=== PATIENT | female | born 1950 | race Caucasian/White ===

== ENCOUNTER → 2016-09-26 | Outpatient (CLI) | payer MEDICARE, OTHER ==
--- NOTE | 2016-09-26 11:47 | Diagnostic Imaging Report ---
EXAMINATION: DEXA scan. INDICATION: Osteopenia. TECHNIQUE: Bone mineral density estimated based on dual energy radiography over the lumbar spine and femoral necks, was performed. FINDINGS: The lumbar spine T-score is -1.8. This is 4.5% decreased density measurement compared to 09/22/2014. T score over the left femoral neck is -1.2 and on the right side is -1.4. This is 1.2% decreased density compared to 09/22/2014. IMPRESSION: Osteopenia. Dictated by: Dictated on workstation # [id number]
--- NOTE | 2016-09-26 19:27 | Diagnostic Imaging Report ---
Bilateral screening mammogram 2D views with tomosynthesis The current study was also evaluated with a Computer Aided Detection (CAD) system. Indication: Screening. No current complaints stated on the questionnaire. COMPARISON: 08/15/15. FINDINGS: The breasts are composed of heterogeneously dense parenchyma which may decrease mammographic sensitivity. Benign-appearing calcifications are seen. Allowing for technique and positional differences, no suspicious change is seen. IMPRESSION: Dense breasts with no definite change. ACR BI-RADS Category 2: Benign findings. Result letter will be mailed to the patient. Note: At least 10% of breast cancer is not imaged by mammography. Dictated by: Dictated on workstation # [id number]
== END ==
LOC: RAD 09:22
PROVIDERS: ATTEND Nurse Practitioner Family
DX: Z12.31 Encounter for screening mammogram for malignant neoplasm of breast (principal); M85.89 Other specified disorders of bone density and structure, multiple sites; E55.9 Vitamin D deficiency, unspecified
CPT/HCPCS: 77067; 77080

== ENCOUNTER → 2016-12-13 | Outpatient (CLI) | payer MEDICARE, OTHER ==
--- NOTE | 2016-12-13 14:12 | Diagnostic Imaging Report ---
INDICATION: Foot pain. COMPARISON: None. FINDINGS: Three views of the right foot demonstrate no acute fracture or dislocation. There are no focal osseous lesions. There is no soft tissue swelling. Joint spaces are well maintained. No radiopaque foreign bodies are seen. IMPRESSION: No acute fractures or dislocations of the right foot. Dictated by: Dictated on workstation # [id number]
== END ==
LOC: RAD 13:32
PROVIDERS: ATTEND Nurse Practitioner Family
DX: M79.671 Pain in right foot (principal)
CPT/HCPCS: 73630

== ENCOUNTER → 2017-03-15 | Outpatient (CLI) | payer MEDICARE, OTHER ==
--- NOTE | 2017-03-15 17:21 | Diagnostic Imaging Report ---
INDICATION: Lower respiratory infection. EXAMINATION: PA and lateral chest. FINDINGS: Heart size and pulmonary vascularity are normal. Lungs are clear. There are no effusions or pneumothoraces. IMPRESSION: Negative chest. Dictated by: Dictated on workstation # [id number]
== END ==
LOC: RAD 16:44
PROVIDERS: ATTEND Nurse Practitioner Family
DX: J20.8 Acute bronchitis due to other specified organisms (principal)
CPT/HCPCS: 71046

== ENCOUNTER → 2017-10-01 | Outpatient (CLI) | payer MEDICARE, OTHER ==
--- NOTE | 2017-10-01 12:16 | Diagnostic Imaging Report ---
INDICATION: Routine screening. Comparison is made with prior exam from 09/26/2016 and 08/15/2015. 2-D and 3-D bilateral screening mammography was performed. The current study was also evaluated with a Computer Aided Detection (CAD) system. FINDINGS: Both breasts are heterogeneously dense, limiting the sensitivity of mammography. The parenchymal pattern is stable. No mass or malignant-appearing microcalcifications are seen. There are benign calcifications bilaterally. The axillae are unremarkable. IMPRESSION: No mammographic features suspicious for malignancy are identified. ACR BI-RADS Category 2: Benign findings. Result letter will be mailed to the patient. Note: At least 10% of breast cancer is not imaged by mammography. Dictated by: Dictated on workstation # [id number]
== END ==
LOC: RAD 10:13
PROVIDERS: ATTEND Nurse Practitioner Family
DX: Z12.31 Encounter for screening mammogram for malignant neoplasm of breast (principal)
CPT/HCPCS: 77067

== ENCOUNTER → 2017-11-10 | Outpatient (CLI) | payer MEDICARE, OTHER ==
--- NOTE | 2017-11-10 17:41 | Diagnostic Imaging Report ---
PROCEDURE: MRI right lower extremity without contrast. TECHNIQUE: Multiplanar, multisequence non contrast-enhanced MRI of the right lower extremity was accomplished. INDICATION: Medial knee pain and swelling since August. No history of previous surgery. FINDINGS: LIGAMENTS AND TENDONS: The anterior cruciate ligament and posterior cruciate ligament appear normal. The medial collateral ligament appears normal. The lateral collateral ligament complex is normal. The quadriceps tendon and the patellar ligament are normal. MENISCI: The lateral meniscus is intact showing normal signal. The medial meniscus shows a significant component of the medial meniscus absent. There is a complex tear involving the remaining portion of posterior horn of the medial meniscus. The anterior horn appears intact. BONES AND CARTILAGE: There is large area of loss of articulating cartilage along the medial femoral condyle and tibial plateau consistent with chronic meniscal disease. There is subcortical edema. No definite cortical bony fracture demonstrated. The lateral femoral condyle and tibial plateau show relatively good preservation of the articulating cartilage. The patellofemoral joint shows good alignment. Trochlea appears normal. No significant loss of cartilage demonstrated. No subcortical edema. No hypertrophic bony changes. BURSA AND SOFT TISSUES: There is a large joint effusion with a large posterior popliteal cyst. This measures approximately 7 cm superior to inferior and 2.5 cm in diameter. There is noted loose body present along the medial gutter likely representing meniscal fragment measuring 10 x 5 mm. IMPRESSION: 1. Finding consistent with chronic meniscal disease in the medial compartment with fragmentation of the medial meniscus. Complex tear in the remaining posterior horn of the medial meniscus. There is loose body noted along the medial gutter likely representing meniscal fragment. 2. Rather marked loss of articulating cartilage along the medial femoral condyle and tibial plateau. 3. Joint effusion with large popliteal cyst. Dictated by: Dictated on workstation # [id number]
== END ==
LOC: RAD 15:52
PROVIDERS: ATTEND Orthopaedic Surgery
DX: M23.221 Derangement of posterior horn of medial meniscus due to old tear or injury, right knee (principal); M71.21 Synovial cyst of popliteal space [Baker], right knee; M24.10 Other articular cartilage disorders, unspecified site; M23.41 Loose body in knee, right knee; M22.41 Chondromalacia patellae, right knee

== ENCOUNTER → 2018-11-23 | Outpatient (CLI) | payer MEDICARE, OTHER ==
--- NOTE | 2018-11-24 14:26 | Diagnostic Imaging Report ---
EXAMINATION: Digital mammogram bilateral screening. The current study was also evaluated with a Computer Aided Detection (CAD) system. 3-D tomosynthesis was also performed and reviewed. INDICATION: Screening. This study was compared to the prior exams of 10/01/2017, 09/26/2016, and 08/15/2015. At this time, there are no current complaints. FINDINGS: The fibroglandular tissue in both breasts is heterogeneously dense. This does limit the sensitivity of this exam. Overall, there does not appear to have been any significant change when compared to the prior study. No primary or secondary sign of malignancy is noted. 3D tomographic images fail to show any sign of malignancy. IMPRESSION: There is no radiographic evidence for malignancy. ACR BI-RADS Category 1: Negative. Result letter will be mailed to the patient. Note: At least 10% of breast cancer is not imaged by mammography. Dictated by: Dictated on workstation # [id number]
== END ==
LOC: RAD 15:21
PROVIDERS: ATTEND Nurse Practitioner Family
DX: Z12.31 Encounter for screening mammogram for malignant neoplasm of breast (principal)
CPT/HCPCS: 77067

== ENCOUNTER → 2019-01-19 | Outpatient (CLI) | payer MEDICARE, OTHER ==
--- NOTE | 2019-01-19 13:35 | Diagnostic Imaging Report ---
INDICATION: Screening for osteoporosis. COMPARISON: 09/26/2016 FINDINGS: The bone mineral density of the hips and spine was measured. This study was compared to the prior exam of 09/26/2016. On the prior study the T-score for the spine was -1.8. In the interval since the previous exam the T-score has decreased and is now -2.5. This does indicate borderline osteoporosis. The total T-score for the left hip is -1.5 and for the right hip -1.9. On the prior exam the respective scores were -1.2 and -1.4. The T-score for each femoral neck is -1.9. On the prior exam the T-score for the left femoral neck was -1.5 and for the right femoral neck -1.6. AP Spine L1-L4: [BMD (g/cm2): 0.900] [T-Score: -2.5] [Z-Score: -1.1] [BMD Previous: 0.986] [BMD % Change: -8.7] LT Hip Neck: [BMD (g/cm2): 0.773] [T-Score: -1.9] [Z-Score: -0.5] LT Hip Total: [BMD (g/cm2):0.821] [T-Score:-1.5] [Z-Score: -0.3] [BMD Previous: 0.859] [BMD % Change: -4.4] RT Hip Neck: [BMD (g/cm2):0.772] [T-Score:-1.9] [Z-Score:-0.5] RT Hip Total: [BMD (g/cm2):0.771] [T-score:-1.9] [Z-Score:-0.7] [BMD Previous:0.829] [BMD % Change:-1.3] *Indicates significant change from prior examination based on 95% confidence level. World Health Organization criteria for BMD interpretation classify patients as Normal (T-score at or above -1.0), Osteopenic (T-score between -1.0 and -2.5) or Osteoporotic (T-score at or below -2.5). LIMITATIONS AND MODIFICATION: None. FRACTURE RISK (FRAX SCORE): The ten year probability of (%): Major Osteoporotic Fracture: [11.0] Hip Fracture: [1.7] IMPRESSION: 1. The bone mineral density of the spine has decreased since the prior exam. There is now borderline osteoporosis. 2. The bone mineral density of the hips is also decreased since the prior exam but the T-scores remain within the range of osteopenia. 3. See below National Osteoporosis Foundation guidelines on when to potentially initiate pharmacologic therapy. Based on the National Osteoporosis Foundation Guidelines, pharmacologic treatment should be initiated in any of the following, unless clinical conditions suggest otherwise: * Any patient with prior fragility fracture of the hip or vertebrae. A spine fracture indicates 5X risk for subsequent spine fracture and 2X risk for subsequent hip fracture. * Osteoporosis (T-score <-2.5). * Postmenopausal women and men age 50 and older with low bone mass/osteopenia (T-score between -1.0 and -2.5) by DXA and 10-year major osteoporotic fracture greater than 20% or a 10-year probability of hip fracture greater than 3%. These fracture risks are supplied above in the FRAX score, if applicable. * Clinician judgement and/or patient preferences may indicate treatment for people with 10-year fracture probabilities above or below these levels. Dictated by: Dictated on workstation # [id number]
== END ==
LOC: RAD 12:18
PROVIDERS: ATTEND Nurse Practitioner Family
DX: Z13.820 Encounter for screening for osteoporosis (principal); M81.0 Age-related osteoporosis without current pathological fracture; Z78.0 Asymptomatic menopausal state
CPT/HCPCS: 77080

== ENCOUNTER → 2021-01-23 | Outpatient (CLI) | payer MEDICARE, OTHER ==
--- NOTE | 2021-01-23 09:23 | Diagnostic Imaging Report ---
INDICATION: Postmenopausal state. COMPARISON: 01/19/2019. FINDINGS: AP Spine L1-L4: [BMD (g/cm2): 0.994] [T-Score: -1.7] [Z-Score: -0.3] [BMD Previous: 0.900] [BMD % Change: 10.4] LT Hip Neck: [BMD (g/cm2): 0.769] [T-Score: -1.9] [Z-Score: -0.4] LT Hip Total: [BMD (g/cm2):0.836] [T-Score:-1.4] [Z-Score: -0.1] [BMD Previous: 0.821] [BMD % Change: 1.8] RT Hip Neck: [BMD (g/cm2):0.755] [T-Score:-2.0] [Z-Score:-0.5] RT Hip Total: [BMD (g/cm2):0.764] [T-score:-1.9] [Z-Score:-0.7] [BMD Previous:0.771] [BMD % Change:-0.9] *Indicates significant change from prior examination based on 95% confidence level. World Health Organization criteria for BMD interpretation classify patients as Normal (T-score at or above -1.0), Osteopenic (T-score between -1.0 and -2.5) or Osteoporotic (T-score at or below -2.5). LIMITATIONS AND MODIFICATION: None. FRACTURE RISK (FRAX SCORE): The ten year probability of (%): Major Osteoporotic Fracture: [11.9] Hip Fracture: [2.3] IMPRESSION: 1. Osteopenia (Low bone mass). 2. No significant change in bone mineral density since prior examination. 3. See below National Osteoporosis Foundation guidelines on when to potentially initiate pharmacologic therapy. Based on the National Osteoporosis Foundation Guidelines, pharmacologic treatment should be initiated in any of the following, unless clinical conditions suggest otherwise: * Any patient with prior fragility fracture of the hip or vertebrae. A spine fracture indicates 5X risk for subsequent spine fracture and 2X risk for subsequent hip fracture. * Osteoporosis (T-score <-2.5). * Postmenopausal women and men age 50 and older with low bone mass/osteopenia (T-score between -1.0 and -2.5) by DXA and 10-year major osteoporotic fracture greater than 20% or a 10-year probability of hip fracture greater than 3%. These fracture risks are supplied above in the FRAX score, if applicable. * Clinician judgement and/or patient preferences may indicate treatment for people with 10-year fracture probabilities above or below these levels. Dictated by: Dictated on workstation # [id number]
--- NOTE | 2021-01-23 13:21 | Diagnostic Imaging Report ---
EXAMINATION: Digital mammogram bilateral screening with CAD. INDICATION: Screening. COMPARISON: This study was compared to the prior exams of 11/23/2018, 10/01/2017, and 09/26/2016. PERSONAL HISTORY: At this time, there are no current complaints. FINDINGS: The fibroglandular tissue in both breasts is heterogeneously dense. This does limit the sensitivity of this exam. Overall, there does not appear to have been any significant change when compared to the prior study. No primary or secondary sign of malignancy is noted. IMPRESSION: There is no radiographic evidence for malignancy. ACR BI-RADS Category 1: Negative. Result letter will be mailed to the patient. Note: At least 10% of breast cancer is not imaged by mammography. Dictated by: Dictated on workstation # [id number]
== END ==
LOC: RAD 08:27
PROVIDERS: ATTEND Nurse Practitioner Family
DX: Z12.31 Encounter for screening mammogram for malignant neoplasm of breast (principal); M85.80 Other specified disorders of bone density and structure, unspecified site; Z78.0 Asymptomatic menopausal state
CPT/HCPCS: 77063; 77067; 77080

== ENCOUNTER → 2022-01-28 | Outpatient (CLI) | payer MEDICARE, OTHER ==
--- NOTE | 2022-01-28 11:31 | Diagnostic Imaging Report ---
INDICATION: Routine screening. Comparison is made with prior mammogram 01/23/2021 and 11/23/2018. 2-D and 3-D bilateral screening mammography was performed with CAD. Both breasts are heterogeneously dense, limiting the sensitivity of mammography. The parenchymal pattern is stable. No mass or malignant-appearing microcalcifications are seen. Axillae are unremarkable. IMPRESSION: No mammographic features suspicious for malignancy are identified. ACR BI-RADS Category 1: Negative. Result letter will be mailed to the patient. Note: At least 10% of breast cancer is not imaged by mammography. BI-RADS Category 1 Dictated by: Dictated on workstation # [id number]
== END ==
LOC: RAD 08:31
PROVIDERS: ATTEND Nurse Practitioner Family
DX: Z12.31 Encounter for screening mammogram for malignant neoplasm of breast (principal)
CPT/HCPCS: 77063; 77067

== ENCOUNTER → 2022-03-07 | Outpatient (CLI) | payer MEDICARE ==
[~2022-03-07] MED LIST: HOLD METFORMIN - RECEIVED CONTRAST 20 ML VIAL IV SCH; IOHEXOL 350 MG/ML 100 ML (OMNIPAQUE 350) VIAL IV ONE; NS 100 ML (IVPB) BAG IV ONE
--- NOTE | 2022-03-07 09:18 | Diagnostic Imaging Report ---
PROCEDURE: CT abdomen and pelvis with contrast. TECHNIQUE: Multiple contiguous axial images were obtained through the abdomen and pelvis after administration of intravenous contrast. Auto Exposure Controls were utilized during the CT exam to meet ALARA standards for radiation dose reduction. All CT scans use one or more of the following dose optimizing techniques: automated exposure control, MA and/or KvP adjustment based on patient size and exam type or iterative reconstruction. INDICATION: Elevated liver enzymes in patient with colitis Several small hypodensities are present in the right lobe of liver possibly related to complicated cyst or hemangiomas. Gallbladder surgically absent with slight prominence of biliary tree which may be secondary to reservoir effect. No pancreatic, adrenal gland or splenic abnormality is seen. Adrenal glands and kidneys are unremarkable in appearance. There is mild enlargement of the appendix, however, no associated inflammation is seen. Mild aortoiliac atherosclerotic calcification is present. Unopacified urinary bladder is unremarkable in appearance. There is [id number] lumbar spondylosis most pronounced at the L2-L3 and L5-S1 levels. IMPRESSION: Hypodensities in right lobe of the liver are likely related to cyst or hemangiomas. Note is made of appendiceal enlargement without significant surrounding inflammation. Clinical correlation to possible pain in this region would be useful. Otherwise, no definite acute abnormality is identified. Dictated by: Dictated on workstation # [id number]
== END ==
LOC: RAD 08:45
PROVIDERS: ATTEND Nurse Practitioner Family
DX: K74.60 Unspecified cirrhosis of liver (principal); K52.9 Noninfective gastroenteritis and colitis, unspecified; R74.01 Elevation of levels of liver transaminase levels
CPT/HCPCS: 74177